=== PATIENT | male | born 1955 | race Caucasian/White ===

== ENCOUNTER 2017-08-03 07:30 | Day surgery (SDC) ==
[2017-08-03] MEDS ORDERED: LIDOCAINE 1% 20 ML MDV ID STA (07:50)
[2017-08-03] MEDS ORDERED: DIPRIVAN 20 ML VIAL IVP ONE (09:45)
[2017-08-03] MEDS ORDERED: VERSED ONE (09:45)
[2017-08-03 13:41] VITALS: BP 135/81; TEMP 97.2
--- NOTE | 2017-08-04 09:10 | OP ---
PROCEDURE: COLONOSCOPY TO THE CECUM. ENDOSCOPIST: Josselin WASHINGTON M.D. INDICATION: HISTORY OF POLYPS INSTRUMENT: [employer]-190. MEDICATION: PER ANESTHESIA. PROCEDURE: The patient was positioned for colonoscopy. The digital rectal exam was negative. The colonoscope was inserted through the anus and advanced to the cecum. The cecum was identified using the ileocecal valve and the appendiceal orifice as landmarks. The scope was slowly withdrawn through an adequately prepped colon. [place] Bowel Prep Score 2+2+3=7. The colon was notable for diverticuli throughout the colon. There was no evidence of polyp or mass. The retroflex exam was otherwise negative. Withdraw time 9 minute and 50 seconds. PLAN: 1. Suggest repeat colonoscopy in 5 years. CC: Dr. Varghese REILLY
== END 2017-08-03 10:43 | disposition home or self-care (01) ==
LOC: SURG 07:30
PROVIDERS: ATTEND Internal Medicine Gastroenterology
DX: Z86.010 Personal history of colon polyps (principal); K57.30 Diverticulosis of large intestine without perforation or abscess without bleeding